=== PATIENT | male | born 1990 | race Caucasian/White ===

== ENCOUNTER 2017-09-07 13:43 | Emergency (ER) | payer SELFPAY ==
[2017-09-07 13:47] VITALS: BP 121/52
--- NOTE | 2017-09-07 15:43 | ED Physician Documentation ---
PD HPI HEENT - Stated complaint Stated Complaint: LEFT EAR PRESSURE - Chief complaint Chief Complaint: Heent - History obtained from History obtained from: Patient - History of Present Illness Timing - onset: Today (Diminished hearing/blockage R ear x 1 day. Had once prior d/t cerumen.) Review of Systems Constitutional: reports: Reviewed and negative Cardiac: reports: Reviewed and negative Respiratory: reports: Reviewed and negative PD PAST MEDICAL HISTORY - Present Medications Home Medications: Ambulatory Orders Medication Instructions Recorded Confirmed No Known Home Medications [No 09/07/17 09/07/17 Known Home Medications] - Allergies Allergies/Adverse Reactions: Allergies Allergy/AdvReac Type Severity Reaction Status Date / Time No Known Drug Allergies Allergy Verified 09/07/17 13:47 PD ED PE NORMAL - Vitals Vital signs reviewed: Yes - General General: Alert and oriented X 3, No acute distress - HEENT HEENT: Other (R cerumen impaction. Lot's of cerumen on left but not impacted.) Results - Vitals Vitals: Vital Signs - 24 hr 09/07/17 13:45 Temperature 36.5 C Heart Rate 55 L Respiratory 18 Rate Blood Pressure 121/52 L O2 Saturation 99 Oxygen O2 Source Room air Procedures - General procedure General procedure: Using syringe irrigation both ears were irrigated and cleared of cerumen with resolution of his symptoms. PD MEDICAL DECISION MAKING - Sepsis Event Vital Signs: Vital Signs - 24 hr 09/07/17 13:45 Temperature 36.5 C Heart Rate 55 L Respiratory 18 Rate Blood Pressure 121/52 L O2 Saturation 99 Oxygen O2 Source Room air Departure - Departure Disposition: 01 Home, Self Care Clinical Impression: Impacted cerumen of both ears Condition: Good Record reviewed to determine appropriate education?: Yes Instructions: Earwax Impacted
== END 2017-09-07 15:57 | disposition home or self-care (01) ==
LOC: ED 13:43
DX: H61.23 Impacted cerumen, bilateral (principal)
CPT/HCPCS: 69209; 99282

== ENCOUNTER 2019-02-13 12:43 | Emergency (ER) | payer MEDICAID ==
[2019-02-13 13:08] LABS: BASOPHILS # (AUTO) 0.1 10^3/uL (0.0-0.1); BASOPHILS % (AUTO) 0.7 %; EOSINOPHILS # (AUTO) 0.6 10^3/uL (0.0-0.7); EOSINOPHILS % (AUTO) 8.9 %; HGB - HEMOGLOBIN 15.2 g/dL (14.0-18.0); LYMPHOCYTES # (AUTO) 1.5 10^3/uL (1.5-3.5); LYMPHOCYTES % (AUTO) 20.9 %; MEAN CORPUSCULAR HEMOGLOBIN 29.7 pg (27.0-31.0); MEAN CORPUSCULAR HGB CONC 33.1 g/dL (32.0-36.0); MEAN CORPUSCULAR VOLUME 89.6 fL (80.0-94.0); MEAN PLATELET VOLUME 9.2 fL (7.4-11.4); MONOCYTES # (AUTO) 0.4 10^3/uL (0.0-1.0); MONOCYTES % (AUTO) 5.3 %; NEUTROPHILS # (AUTO) 4.4 10^3/uL (1.5-6.6); NEUTROPHILS % (AUTO) 64.1 %; PLT - PLATELET COUNT 256 10^3/uL (130-450); RED BLOOD COUNT 5.12 10^6/uL (4.70-6.10); RED CELL DISTRIBUTION WIDTH 12.5 % (12.0-15.0); WHITE BLOOD COUNT 6.9 x10^3/uL (4.8-10.8)
[2019-02-13 13:25] LABS: ALBUMIN 4.5 g/dL (3.2-5.5); ALBUMIN/GLOBULIN RATIO 1.6 (1.0-2.2); BILIRUBIN,TOTAL 1.1 mg/dL (0.2-1.0); CALCIUM 9.1 mg/dL (8.5-10.3); CREATININE 1.1 mg/dL (0.6-1.2); TOTAL PROTEIN 7.4 g/dL (6.7-8.2)
[2019-02-13] MEDS ORDERED: ALBUTEROL NEB 2.5 MG/3 ML INH STA (13:59)
[2019-02-13] MEDS ORDERED: DICYCLOMINE 10 MG CAPSULE PO STA (13:59)
--- NOTE | 2019-02-13 14:03 | ED Physician Documentation ---
PD HPI ABD PAIN - Stated complaint Stated Complaint: ABD PX - Chief complaint Chief Complaint: Abd Pain - History obtained from History obtained from: Patient (28-year-old gentleman who has multiple complaints. First off he has a history of asthma and feels like for the last few months it has been worse than it had been in the past. Is worse at night and feels like it is worse with stress. He has a nonproductive cough and shortness of breath. There is no chest pain. He also notes that he has kind of longstanding abdominal issues. States he was admitted to the hospital for 7 days for gallbladder issues but never had a cholecystectomy. He can voice has loose stools but over last 3 days it has been worse with more profuse diarrhea, already 4 episodes of unformed stool today. There is some right-sided abdominal pain associated with it but no fevers or chills. There is no nausea. No fevers. No recent antibiotics or travel.) Review of Systems Constitutional: denies: Fever, Chills Cardiac: reports: Reviewed and negative Respiratory: reports: Reviewed and negative GI: reports: Abdominal Pain, Diarrhea. denies: Nausea, Vomiting, Constipation : denies: Dysuria, Frequency PD PAST MEDICAL HISTORY - Past Surgical History Past Surgical History: No - Present Medications Home Medications: Ambulatory Orders Medication Instructions Recorded Confirmed Albuterol Sulf [Ventolin Hfa 1 - 2 puffs INH Q4HR PRN #1 inhaler 02/13/19 Inhaler] Beclomethasone 40 Mcg [Qvar 40] 1 puffs INH BID #2 inhaler 02/13/19 Dicyclomine [Bentyl] 20 mg PO QID PRN #20 capsule 02/13/19 Sertraline [Zoloft] 50 mg PO DAILY #60 tablet 02/13/19 - Allergies Allergies/Adverse Reactions: Allergies Allergy/AdvReac Type Severity Reaction Status Date / Time No Known Drug Allergies Allergy Verified 09/07/17 13:47 - Social History Does the pt smoke?: No Smoking Status: Never smoker Does the pt drink ETOH?: No Does the pt have substance abuse?: No - Immunizations Immunizations are current?: Yes - POLST Patient has POLST: No PD ED PE NORMAL - Vitals Vital signs reviewed: Yes - General General: Alert and oriented X 3, No acute distress - HEENT HEENT: PERRL, EOMI - Neck Neck: Supple, no meningeal sign, No bony TTP - Cardiac Cardiac: RRR, No murmur - Respiratory Respiratory: No respiratory distress, Other (Moderate expiratory wheezes, nonlabored, nonfocal.) - Abdomen Abdomen: Other (Mild right mid and upper abdominal tenderness without significant right lower quadrant tenderness. No left-sided abdominal tenderness. No surgical signs.) - Back Back: No CVA TTP, No spinal TTP - Derm Derm: Normal color, Warm and dry - Extremities Extremities: No edema, No calf tenderness / cord - Neuro Neuro: Alert and oriented X 3, Normal speech Results - Vitals Vitals: Vital Signs - 24 hr 02/13/19 02/13/19 12:50 14:15 Temperature 37.3 C Heart Rate 65 68 Respiratory 17 16 Rate Blood Pressure 154/70 H O2 Saturation 97 Oxygen O2 Source Room air - Labs Labs: Laboratory Tests 02/13/19 02/13/19 13:03 13:03 WBC 6.9 RBC 5.12 Hgb 15.2 Hct 45.9 MCV 89.6 MCH 29.7 MCHC 33.1 RDW 12.5 Plt Count 256 MPV 9.2 Neut # (Auto) 4.4 Lymph # (Auto) 1.5 [place] # (Auto) 0.4 Eos # (Auto) 0.6 Baso # (Auto) 0.1 Absolute Nucleated RBC 0.00 Nucleated RBC % 0.0 Sodium 139 Potassium 4.3 Chloride 106 Carbon Dioxide 26 Anion Gap 7.0 BUN 18 Creatinine 1.1 Estimated GFR (MDRD) 79 L Glucose 108 H Calcium 9.1 Total Bilirubin 1.1 H AST 21 ALT 21 Alkaline Phosphatase 47 Total Protein 7.4 Albumin 4.5 Globulin 2.9 Albumin/Globulin Ratio 1.6 Lipase 35 - Rads (name of study) Abd sono Radiology: EMP read contemporaneously (5mm polyp vs stone, small renal cyst) PD MEDICAL DECISION MAKING - ED course ED course: 28-year-old gentleman with multiple complaints including uncontrolled asthma without PCP follow-up, subacute but worsening right-sided abdominal pain associated with diarrhea. Also later admitted to severe anxiety which he thinks may be causing his abdominal symptoms and his is agreeing. [place] better from a respiratory standpoint after nebulizer here. Was unable to produce a stool sample here and given outpatient lab requisition for a culture, ova and parasite, and C. difficile test. He wanted to start an antidepressant and after discussion this is not unreasonable. Departure - Departure Disposition: 01 Home, Self Care Clinical Impression: Anxiety Diarrhea Qualifiers: Diarrhea type: presumed infectious Qualified Code(s): R19.7 - Diarrhea, unspecified Abdominal pain Qualifiers: Abdominal location: right upper quadrant Qualified Code(s): R10.11 - Right upper quadrant pain Condition: Good Record reviewed to determine appropriate education?: Yes Instructions: ED Abdominal Pain Unkn Cause Follow-Up: Amador Gonzales MD [Provider Admit Priv/Credential] - Within 1 week [facility] [Provider Group] [facility] [Provider Group] Prescriptions: Albuterol Sulf [Ventolin Hfa Inhaler] 1 - 2 puffs INH Q4HR PRN #1 inhaler PRN Reason: Shortness Of Air/Wheezing Beclomethasone 40 Mcg [Qvar 40] 1 puffs INH BID #2 inhaler Dicyclomine [Bentyl] 20 mg PO QID PRN #20 capsule PRN Reason: Abdominal Pain Sertraline [Zoloft] 50 mg PO DAILY #60 tablet Comments: As discussed, if symptoms are persistent I think a follow-up colonoscopy in his is in order, in addition to irritable bowel syndrome things like Crohn's or ulcerative colitis are possibility. Return anytime if worse. Important to follow-up with your primary care physician for management of your asthma and anxiety.
--- NOTE | 2019-02-13 14:48 | Ultrasound Report ---
Reason: RUQ pain Procedure Date: 02/13/2019 Accession Number: [id number] / [id number] Procedure: US - Abdomen Limited CPT Code: Final Report FULL RESULT: EXAM: ABDOMEN ULTRASOUND LIMITED, RUQ EXAM DATE: 02/13/2019 02:05 PM. CLINICAL HISTORY: RUQ pain. COMPARISON: None. TECHNIQUE: Real-time scanning was performed with static images obtained. FINDINGS: Liver: Normal in size and echotexture. 16.3 cm. Main portal vein flow: Hepatopetal. Gallbladder: 0.5 cm non-mobile gallstone versus polyp and avascular. No gallbladder wall thickening. No sonographic Veloz's sign. Biliary System: CBD measures 3-4 mm. No intrahepatic or extrahepatic ductal dilatation. Other: Right kidney measures 10 cm. Normal echotexture. No hydronephrosis. Mid 1.3 x 1.3 x 1.3 cm cyst is present. No solid renal masses. No renal calculi. IMPRESSION: 1. 0.5 cm polyp versus non-mobile gallstone. No sonographic evidence of cholecystitis. 2. No biliary ductal dilatation. 3. Simple right renal 1.3 cm cyst. RADIA
[2019-02-13 15:14] VITALS: BP 115/74
[2019-02-13 15:14] LABS: BILIRUBIN,URINE NEGATIVE (NEGATIVE); GLUCOSE, URINE (UA) NEGATIVE (NEGATIVE); KETONES,URINE (UA) NEGATIVE (NEGATIVE); LEUKOCYTE ESTERASE, URINE NEGATIVE (NEGATIVE); NITRITE,URINE NEGATIVE (NEGATIVE); OCCULT BLOOD,URINE NEGATIVE (NEGATIVE); PROTEIN,URINE NEGATIVE (NEGATIVE); UROBILINOGEN,URINE 0.2 (NORMAL) E.U./dL (NORMAL)
[2019-02-13 15:21] LABS: CLARITY,URINE CLEAR (CLEAR)
== END 2019-02-13 15:15 | disposition home or self-care (01) ==
LOC: ED 12:43
DX: F41.9 Anxiety disorder, unspecified (principal); R19.7 Diarrhea, unspecified; R10.11 Right upper quadrant pain; R06.2 Wheezing
CPT/HCPCS: 36415; 76705; 80053; 81003; 83690; 85025; 94640; 99284; A9270; 81001; 87086

== ENCOUNTER 2019-03-12 17:40 | Emergency (ER) | payer MEDICAID ==
--- NOTE | 2019-03-12 19:09 | ED Physician Documentation ---
PD HPI URI - Stated complaint Stated Complaint: RT EAR PX/TRAN/HEADACHE - Chief complaint Chief Complaint: Heent - History obtained from History obtained from: Patient - History of Present Illness Timing - onset: How many days ago (2-3) Timing duration: Days Timing details: Gradual onset Associated symptoms: Ear pain (right ear today), Nasal congestion, Sinus pain. No: Sore throat Contributing factors: No: Sick contact Similar symptoms before: Has not had sx before Recently seen: Not recently seen Review of Systems Constitutional: denies: Fever, Chills, Myalgias Ears: reports: Loss of hearing (right ear today), Ear pain Nose: reports: Rhinorrhea / runny nose, Congestion, Sinus pressure / pain Throat: reports: Sore throat Respiratory: denies: Cough GI: denies: Nausea, Vomiting, Diarrhea Skin: denies: Rash, Lesions PD PAST MEDICAL HISTORY - Past Medical History Past Medical History: No - Past Surgical History Past Surgical History: No - Present Medications Home Medications: Ambulatory Orders Medication Instructions Recorded Confirmed Albuterol Sulf [Ventolin Hfa 1 - 2 puffs INH Q4HR PRN #1 inhaler 02/13/19 Inhaler] Beclomethasone 40 Mcg [Qvar 40] 1 puffs INH BID #2 inhaler 02/13/19 Dicyclomine [Bentyl] 20 mg PO QID PRN #20 capsule 02/13/19 Sertraline [Zoloft] 50 mg PO DAILY #60 tablet 02/13/19 Cephalexin [Keflex] 500 mg PO Q6H #28 capsule 03/12/19 Cetirizine [ZyrTEC] 10 mg PO DAILY #15 tablet 03/12/19 Naproxen 375 mg PO BID #20 tablet 03/12/19 - Allergies Allergies/Adverse Reactions: Allergies Allergy/AdvReac Type Severity Reaction Status Date / Time No Known Drug Allergies Allergy Verified 03/12/19 17:50 - Social History Does the pt smoke?: No Smoking Status: Never smoker Does the pt drink ETOH?: No Does the pt have substance abuse?: No - Immunizations Immunizations are current?: Yes - POLST Patient has POLST: No PD ED PE NORMAL - Vitals Vital signs reviewed: Yes - General General: Alert and oriented X 3, No acute distress, Well developed/nourished - HEENT HEENT: Pharynx benign. No: Ears normal (Left ear is normal. Right ear shows redness and bulging around the eardrum. There is minimal to no wax in the ear canal.) - Neck Neck: Supple, no meningeal sign, Other (Anterior adenopathy particularly on the right.) - Cardiac Cardiac: RRR, No murmur - Respiratory Respiratory: Clear bilaterally - Derm Derm: Normal color, Warm and dry - Neuro Neuro: Alert and oriented X 3, No motor deficit, Normal speech Results - Vitals Vitals: Vital Signs - 24 hr 03/12/19 19:31 Heart Rate 68 Respiratory 14 Rate Blood Pressure 114/60 O2 Saturation 98 Oxygen O2 Source Room air PD MEDICAL DECISION MAKING - ED course Complexity details: considered differential, d/w patient Departure - Departure Disposition: 01 Home, Self Care Clinical Impression: Otitis media Qualifiers: Otitis media type: suppurative Chronicity: acute Laterality: right Recurrence: non-recurrent Spontaneous tympanic membrane rupture: without spontaneous rupture Qualified Code(s): H66.001 - Acute suppurative otitis media without spontaneous rupture of ear drum, right ear Upper respiratory infection Qualifiers: URI type: unspecified URI Qualified Code(s): J06.9 - Acute upper respiratory infection, unspecified Condition: Stable Record reviewed to determine appropriate education?: Yes Instructions: ED Otitis Media Acute Adult Prescriptions: Cephalexin [Keflex] 500 mg PO Q6H #28 capsule Cetirizine [ZyrTEC] 10 mg PO DAILY #15 tablet Naproxen 375 mg PO BID #20 tablet Comments: Stay well-hydrated. Use cephalexin antibiotic as directed for a week for the ear infection. Naproxen anti-inflammatory twice daily for 7 to 10 days. Cetirizine antihistamine daily for 7 to 10 days as well. This combination is to help treat infection inflammation and congestion causing your symptoms. Add Tylenol 4 times a day if needed for pain. Recheck if not improving well over the next few days. Discharge Date/Time: 03/12/19 19:31
[2019-03-12] MEDS ORDERED: cephALEXin 250 MG CAPSULE PO STA (19:20)
[2019-03-12] MEDS ORDERED: CHERRY SYRUP 10 ML UDC PO ONE (19:20)
[2019-03-12] MEDS ORDERED: diphenhydrAMINE 25 MG CAPSULE PO STA (19:20)
[2019-03-12] MEDS ORDERED: NAPROXEN 250 MG TABLET PO STA (19:20)
[2019-03-12] MEDS ORDERED: ACETAMINOPHEN 325 MG TABLET PO STA (19:20)
[2019-03-12] MEDS ORDERED: DEXAMETHASONE 10 MG/ML VIAL PO STA (19:20)
[2019-03-12 19:32] VITALS: BP 114/60
== END 2019-03-12 19:31 | disposition home or self-care (01) ==
LOC: ED 17:40
DX: H66.001 Acute suppurative otitis media without spontaneous rupture of ear drum, right ear (principal); J06.9 Acute upper respiratory infection, unspecified
CPT/HCPCS: 99283; A9270

== ENCOUNTER 2020-04-09 16:20 | Outpatient (CLI) | payer MEDICAID | END 2020-04-09 16:21 | disposition home or self-care (01) | LOC: COV 16:20 | PROVIDERS: ATTEND Family Medicine | DX: R05 Cough (principal); R06.02 Shortness of breath; M79.10 Myalgia, unspecified site; R09.81 Nasal congestion; J34.89 Other specified disorders of nose and nasal sinuses; Z20.822 Contact with and (suspected) exposure to COVID-19 ==

== ENCOUNTER 2022-04-30 14:25 | Emergency (ER) | payer MEDICAID ==
[2022-04-30 15:20] LABS: BASOPHILS # (AUTO) 0.1 10^3/uL (0.0-0.1); BASOPHILS % (AUTO) 0.7 %; EOSINOPHILS # (AUTO) 0.2 10^3/uL (0.0-0.7); EOSINOPHILS % (AUTO) 2.1 %; HCT - HEMATOCRIT 46.1 % (42.0-52.0); HGB - HEMOGLOBIN 14.6 g/dL (14.0-18.0); LYMPHOCYTES # (AUTO) 2.3 10^3/uL (1.5-3.5); MEAN CORPUSCULAR HEMOGLOBIN 28.3 pg (27.0-31.0); MEAN CORPUSCULAR HGB CONC 31.7 g/dL (32.0-36.0); MEAN CORPUSCULAR VOLUME 89.5 fL (80.0-94.0); MEAN PLATELET VOLUME 9.3 fL (7.4-11.4); MONOCYTES # (AUTO) 0.5 10^3/uL (0.0-1.0); NEUTROPHILS # (AUTO) 5.5 10^3/uL (1.5-6.6); PLT - PLATELET COUNT 252 10^3/uL (130-450); RED BLOOD COUNT 5.15 10^6/uL (4.70-6.10); RED CELL DISTRIBUTION WIDTH 12.3 % (12.0-15.0); WHITE BLOOD COUNT 8.6 x10^3/uL (4.8-10.8)
[2022-04-30 15:24] LABS: ALBUMIN 4.2 g/dL (3.2-5.5); ALBUMIN/GLOBULIN RATIO 1.4 (1.0-2.2); BILIRUBIN,TOTAL 1.2 mg/dL (0.2-1.0); CALCIUM 9.2 mg/dL (8.5-10.3); CREATININE 1.2 mg/dL (0.6-1.2); POTASSIUM 4.5 mmol/L (3.5-5.0); TOTAL PROTEIN 7.3 g/dL (6.7-8.2)
--- NOTE | 2022-04-30 16:24 | ED Physician Documentation ---
PD HPI ABD PAIN - Stated complaint Stated Complaint: ABD PX - Chief complaint Chief Complaint: Abd Pain - History obtained from History obtained from: Patient - Additional information Additional information: 31-year-old gentleman has a history of potential gallstones. 7 years ago he had an episode of right upper quadrant pain, and at that time was told he had small gallstones. This was on ultrasound. 3 years ago the pain recurred. He did not have imaging at that time. He states that he was told it was not gallstones. For the last 5 days he had fairly constant right upper quadrant pain that is worse when he eats. It is worse immediately after he eats. It does not matter what he eats. There is no current nausea but he has had at times mild nausea. No fevers. No radiation of the pain. PD PAST MEDICAL HISTORY - Past Surgical History Past Surgical History: No - Present Medications Home Medications: Ambulatory Orders Medication Instructions Recorded Confirmed Albuterol Sulf [Ventolin Hfa 1 - 2 puffs INH Q4HR PRN #1 inhaler 02/13/19 Inhaler] Beclomethasone 40 Mcg [Qvar 40] 1 puffs INH BID #2 inhaler 02/13/19 Dicyclomine [Bentyl] 20 mg PO QID PRN #20 capsule 02/13/19 Sertraline [Zoloft] 50 mg PO DAILY #60 tablet 02/13/19 Cetirizine [ZyrTEC] 10 mg PO DAILY #15 tablet 03/12/19 Naproxen 375 mg PO BID #20 tablet 03/12/19 cephALEXin [Keflex] 500 mg PO Q6H #28 capsule 03/12/19 HYDROcod/ACETAM 5/325 [[place] 5/325] 1 - 2 tab PO Q6H PRN #15 tablet 04/30/22 - Allergies Allergies/Adverse Reactions: Allergies Allergy/AdvReac Type Severity Reaction Status Date / Time No Known Drug Allergies Allergy Verified 04/30/22 14:54 - Social History Does the pt smoke?: No Smoking Status: Never smoker Does the pt drink ETOH?: No Does the pt have substance abuse?: No - Immunizations Immunizations are current?: Yes - POLST Patient has POLST: No PD ED PE NORMAL - Vitals Vital signs reviewed: Yes - General General: Alert and oriented X 3, No acute distress - Cardiac Cardiac: RRR, No murmur - Respiratory Respiratory: No respiratory distress, Clear bilaterally - Abdomen Abdomen: Normal bowel sounds, Soft, Other (Very mild right upper quadrant tenderness with negative Veloz sign) - Neuro Neuro: Alert and oriented X 3, Normal speech Results - Vitals Vitals: Vital Signs - 24 hr 04/30/22 04/30/22 14:51 18:08 Temperature 36.8 C 36.6 C Heart Rate 58 L 58 L Respiratory 16 17 Rate Blood Pressure 111/61 142/117 H O2 Saturation 98 100 Oxygen O2 Source Room air - Labs Labs: Laboratory Tests 04/30/22 04/30/22 04/30/22 15:06 15:06 16:23 WBC 8.6 RBC 5.15 Hgb 14.6 Hct 46.1 MCV 89.5 MCH 28.3 MCHC 31.7 L RDW 12.3 Plt Count 252 MPV 9.3 Neut # (Auto) 5.5 Lymph # (Auto) 2.3 [place] # (Auto) 0.5 Eos # (Auto) 0.2 Baso # (Auto) 0.1 Absolute Nucleated RBC 0.00 Nucleated RBC % 0.0 Sodium 138 Potassium 4.5 Chloride 105 Carbon Dioxide 26 Anion Gap 7.0 BUN 21 H Creatinine 1.2 Estimated GFR (MDRD) 70 L Glucose 100 Calcium 9.2 Total Bilirubin 1.2 H AST 18 ALT 19 Alkaline Phosphatase 45 Total Protein 7.3 Albumin 4.2 Globulin 3.1 Albumin/Globulin Ratio 1.4 Lipase 30 Urine Color YELLOW Urine Clarity CLEAR Urine pH 6.0 Ur Specific [place] >=1.030 H Urine Protein NEGATIVE Urine Glucose (UA) NEGATIVE Urine Ketones NEGATIVE Urine Occult Blood NEGATIVE Urine Nitrite NEGATIVE Urine Bilirubin NEGATIVE Urine Urobilinogen 0.2 (NORMAL) Ur Leukocyte Esterase NEGATIVE Ur Microscopic Review NOT INDICATED Urine Culture Comments NOT INDICATED PD Medical Decision Making - ED course ED course: 31-year-old gentleman with episodic right upper quadrant pain. He has a gallstone. Benign exam. Labs show mild elevation in bilirubin on CMP. CBC normal. Urinalysis normal save high gravity. Declined pain medications here. He will be following up with a surgeon. Departure - Departure Disposition: 01 Home, Self Care Clinical Impression: Abdominal pain Condition: Good Record reviewed to determine appropriate education?: Yes Instructions: ED Abdominal Pain Unkn Cause Male Follow-Up: [facility] [Provider Group] [facility] [Provider Group] Prescriptions: HYDROcod/ACETAM 5/325 [Tellur[place] 5/325] 1 - 2 tab PO Q6H PRN #15 tablet PRN Reason: Pain Comments: As discussed, the preliminary report from the hot dip tinning supervisor is that you have a gallbladder polyp. This could be causing her symptoms. Your labs are normal. Reasonable to follow-up with the surgeon. I will call you later if the radiologist sees something important on the ultrasound that the compliance testing analyst did not mention. Return for new or worsening symptoms. I sent your prescriptions electronically to [facility] in [place]. I am prescribing a short course of narcotic pain medication for you. These are potentially dangerous and addictive medications that should be used carefully. These medications may constipate you. Take an snkz-[id number] stool softener (docusate) twice daily with plenty of water while taking these medications. If you go 24 hours without a bowel movement, take [id number] miralax, per package instructions. Do not drink or drive while taking these medications. If you received narcotic or sedating medications while in the emergency department, do not drive for 24 hours. Store this medication in a safe, secure place and out of reach of children. It is a violation of federal law to give or sell this medication to another person or to use in a manner other than prescribed. The ED will not refill narcotic prescriptions, including prescriptions lost or stolen. To dispose of unwanted medications: 1. [facility] at [address] in [place] has a medication drop box. They accept prescription medications (in pill form) Sunday through Sunday 9:00 a.m. to 5:00 p.m. 2. The [facility] [place] [employer] accepts prescription medications (in pill form only) for disposal year round. Call for more information. 3. Contact the [facility] for the next [facility] sponsored prescription drug collection event. , [phone], or [phone]; Note that many narcotic pain relievers also contain Tylenol/acetaminophen. Please ensure that your total dose of acetaminophen from all sources does not exceed 3 g (3000 mg) per day. Discharge Date/Time: 04/30/22 18:09
[2022-04-30 16:38] LABS: BILIRUBIN,URINE NEGATIVE (NEGATIVE); GLUCOSE, URINE (UA) NEGATIVE (NEGATIVE); KETONES,URINE (UA) NEGATIVE (NEGATIVE); LEUKOCYTE ESTERASE, URINE NEGATIVE (NEGATIVE); NITRITE,URINE NEGATIVE (NEGATIVE); OCCULT BLOOD,URINE NEGATIVE (NEGATIVE); PROTEIN,URINE NEGATIVE (NEGATIVE); UROBILINOGEN,URINE 0.2 (NORMAL) E.U./dL (NORMAL)
[2022-04-30 16:39] LABS: CLARITY,URINE CLEAR (CLEAR)
[2022-04-30 18:09] VITALS: BP 142/117
--- NOTE | 2022-04-30 18:23 | Ultrasound Report ---
PROCEDURE: Abdomen Limited INDICATIONS: ruq pain TECHNIQUE: Real-time focused scanning was performed of the abdomen, with image documentation. COMPARISON: FINDINGS: Liver: Liver is normal in size and demonstrates mildly increased echotexture consistent with mild fa tty infiltration. There is a 1.1 x 0.7 x 1 point centimeter subtle hypoechoic focus in the left hepa tic lobe. Portal vein is patent and demonstrates hepatopedal flow. Gallbladder: There is a 1 cm mobile gallstone. Previously seen gallbladder polyp is not visualized. N o gallbladder wall thickening, pericholecystic fluid collection or no sonographic Veloz sign. Biliary ducts: Intrahepatic bile ducts are non-dilated. Extrahepatic bile duct caliber measures 2.9 mm. Normal is 6-7 mm or less in diameter, or 10 mm or less post-cholecystectomy. Pancreas: Visualized portions of the pancreas are sonographically normal. Right kidney: Right kidney measures 10.1 cm long. No hydronephrosis or nephrolithiasis. No solid m asses. As a 1.4 x 1.7 x 1.7 cm simple cyst in right kidney. IVC: Intrahepatic inferior vena cava is patent. Miscellaneous: No free abdominal fluid. IMPRESSION: 1. Diffusely increased hepatic echotexture compatible with hepatic fatty infiltration. Other hepatoce llular disease could have a similar appearance. 2. A mobile gallstone is present. No ultrasound findings to suggest acute cholecystitis. Reviewed by: Eamon Wilder MD on 04/30/2022 6:22 PM PST Approved by: Eamon Wilder MD on 04/30/2022 6:22 PM PST Station ID: [id number]
== END 2022-04-30 18:09 | disposition home or self-care (01) ==
LOC: ED 14:25
DX: R10.11 Right upper quadrant pain (principal)
CPT/HCPCS: 36415; 80053; 81001; 81003; 83690; 85025; 87086; 99283; 99284

== ENCOUNTER 2022-08-28 08:41 | Day surgery (SDC) | payer MEDICAID ==
[~2022-08-28 08:41] MED LIST: BUPIVACAINE 0.25% PF 30 ML VIAL ONE; LIDOCAINE 1%-EPI 1:100000 20 ML MDV ONE; iohexoL-240 10 ML VIAL IVP ONE
[2022-08-28] MEDS ORDERED: ACETAMINOPHEN 500 MG TABLET PO ONE (08:57)
[2022-08-28] MEDS ORDERED: metroNIDAZOLE 500 MG/100 ML 500 MG/100 ML BAG ONE (08:58)
[2022-08-28] MEDS ORDERED: ceFAZolin 2 GM VIAL ONE (08:58)
[2022-08-28] MEDS ORDERED: CELECOXIB 100 MG CAPSULE PO ONE (08:58)
[2022-08-28] MEDS ORDERED: LACTATED RINGERS 1,000 ML IV ONE ×2 (09:02→12:25)
[2022-08-28] MEDS ORDERED: PROPOFOL 200 MG/20 ML VIAL IVP ONE (09:51)
[2022-08-28] MEDS ORDERED: ROCURONIUM 50 MG/5 ML VIAL ONE (09:52)
--- NOTE | 2022-08-28 09:53 | ANESTHESIA ---
Pre-Anesthesia VS, & Labs - Diagnosis cholecystitis - Procedure laparoscopic cholecystectomy with IOC Vital Signs: Temp Pulse Resp BP Pulse Ox O2 Flow Rate 36.7 C 56 L 12 126/72 95 0 08/28/22 09:04 08/28/22 09:04 08/28/22 09:04 08/28/22 09:04 08/28/22 09:04 08/28/22 09:04 Height: 6 ft Weight (kg): 99 kg Body Mass Index: 29.6 BMI Classification: Overweight - NPO >8 hours Home Medications and Allergies Home Medications: Ambulatory Orders Albuterol Sulf [Ventolin Hfa Inhaler] 1 - 2 puffs INH Q4HR PRN 08/18/22 Active Medications Acetazolamide (Acetazolamide 250 Mg Tablet) 250 mg PO ONCE ONE Stop: 08/28/22 10:01 Albuterol Sulf [Ventolin Hfa Inhaler] 1 - 2 puffs INH Q4HR PRN 08/18/22 Allergies/Adverse Reactions: Allergies Allergy/AdvReac Type Severity Reaction Status Date / Time latex Allergy Rash Verified 08/28/22 09:07 Anes History & Medical History - Anesthetic History Anesthesia Complications: reports: No previous complications - Medical History Cardiovascular: reports: None Pulmonary: reports: Asthma Gastrointestinal: reports: None Urinary: reports: None Musculoskeletal: reports: Chronic back pain Endocrine/Autoimmune: reports: None Skin: reports: None Smoking Status: Never smoker History of Cancer?: No - Surgical History Eyes Ears Nose Throat (EENT): reports: Myringotomy (tubes), Tonsil/Adenoidectomy, Other Exam General: Alert, Oriented x3 Dental: WNL Mouth Opening: Greater than 4 Fingerbreadths Neck Mobility: Normal Mallampati classification: II Thyromental Distance: greater than 6 cm Respiratory: Lungs clear Cardiovascular: Regular rate Plan Anesthesia Type: General Consent for Procedure(s) Verified and Reviewed: Yes Code Status: Attempt Resuscitation ASA classification: 2-Mild systemic disease Is this case an emergency?: No
[2022-08-28] MEDS ORDERED: fentaNYL 100 MCG/2 ML VIAL ONE ×3 (09:56→12:40)
[2022-08-28] MEDS ORDERED: MIDAZOLAM 2 MG/2 ML VIAL ONE (09:56)
[2022-08-28] MEDS: acetaZOLAMIDE 250 MG TABLET PO ONE ×2 (10:01→19:49)
[2022-08-28] MEDS ORDERED: METOCLOPRAMIDE 10 MG/2 ML VIAL IVP PRN ×2 (10:11→15:05)
[2022-08-28] MEDS ORDERED: MORPHINE 2 MG/ML CARPUJECT IVP PRN (10:11)
[2022-08-28] MEDS ORDERED: ePHEDrine 50 MG/ML VIAL IVP PRN (10:11)
[2022-08-28] MEDS ORDERED: NALOXONE 0.4 MG/ML VIAL IVP PRN (10:11)
[2022-08-28] MEDS ORDERED: ATROPINE ABBOJECT 1 MG/10 ML SYRINGE IVP PRN (10:11)
[2022-08-28] MEDS ORDERED: ONDANSETRON 4 MG/2 ML VIAL IVP PRN (10:11)
[2022-08-28] MEDS ORDERED: fentaNYL 100 MCG/2 ML VIAL IVP PRN (10:11)
[2022-08-28] MEDS ORDERED: GLYCOPYRROLATE 1 MG/5 ML VIAL ONE (10:44)
[2022-08-28] MEDS ORDERED: ONDANSETRON 4 MG/2 ML VIAL ONE ×2 (10:58→13:59)
[2022-08-28] MEDS ORDERED: DEXAMETHASONE 4 MG/ML VIAL ONE (10:58)
[2022-08-28] MEDS ORDERED: IOTHALAMATE MEGLUMINE 50 ML VIAL IVP ONE (11:00)
[2022-08-28] MEDS ORDERED: LIDOCAINE 1%-EPI 1:100000 20 ML MDV SUBQ ONE (11:00)
[2022-08-28] MEDS ORDERED: BUPIVACAINE 0.5% PF 30 ML VIAL SUBQ ONE (11:00)
[2022-08-28] MEDS ORDERED: LACTATED RINGERS 1,000 ML IV SCH ×2 (11:00→17:00)
[2022-08-28] MEDS ORDERED: SUGAMMADEX 200 MG/2 ML VIAL IVP ONE (11:55)
[2022-08-28] MEDS ORDERED: LACTATED RINGERS 150 ML IV ONE (12:07)
[2022-08-28] MEDS ORDERED: oxyCODONE 5 MG TABLET PO PRN (12:11)
--- NOTE | 2022-08-28 12:14 | OPERATIVE REPORT ---
Operative Report - General Procedure Date: 08/28/22 Planned Procedure: Laparoscopic cholecystectomy with intraoperative cholangiogram Pre-Op Diagnosis: Chronic cholecystitis, symptomatic cholelithiasis Procedure Performed: Laparoscopic cholecystectomy with attempted intraoperative cholangiogram Post Op Diagnosis: Chronic cholecystitis, symptomatic cholelithiasis - Procedure Note Primary Surgeon: Dr. Patti White Anesthesia Provider: Marti Ribeiro CRNA Anesthesia Technique: General ET tube, Local Pathology: Gallbladder and contents Estimated Blood Loss (mL): 10 Indications: The patient has had episodic right upper quadrant pain for several years. On ultrasound, he does have at least one gallstone. He was seen and evaluated in the clinic where we discussed the risks, benefits, and alternatives of laparoscopic cholecystectomy with intraoperative cholangiogram and possible open procedure. Risks discussed include bleeding, infection, damage to surrounding structures including the common bile duct, and the need for further surgeries or procedures. The patient voiced understanding, his questions were answered, and he wished to proceed. Consent was signed by the patient in clinic. Findings: 1. Loose adhesions between the omentum and gallbladder 2. Cholelithiasis 3. Critical view of safety obtained from medial and lateral position 4. Very small cystic duct, unable to be cannulated with cholangiogram catheter Complications: None - Other Other Information/Narrative: The patient was brought to the operative suite and placed in the supine position. General endotracheal anesthesia was induced. Preoperative antibiotics were given. ERAS protocol was followed. A preop surgical timeout was performed. Local anesthetic was injected into the skin and subcutaneous tissues just inferior to the umbilicus. An 11 blade scalpel was used to make a 5 mm transverse skin incision in this location. Next, a hemostat was used to spread the tissues down to the level of the fascia and a Ravi clamp was used to grasp and elevate the umbilical stalk. A Varess needle was used to gain access to the peritoneal space. Low flow insufflation revealed low pressures and then high flow insufflation was undertaken to 15 mmHg. Next, the Varess needle was removed and a 5 mm laparoscopic port was inserted in this location. Through this port, a 5 mm 30 degree laparoscope was inserted. On inspection of the abdomen no injury was caused on entry. Next, the patient was placed in reverse Trendelenburg and rotated slightly to the left. Two 5 mm ports were inserted in the right upper quadrant, one in the anterior axillary line and the other in the midclavicular line. Also, a 12 mm port was inserted in the subxiphoid region. All ports were placed by first anesthetizing the skin and subcutaneous tissues with local anesthetic, then by making an appropriate length incision with an 11 blade scalpel, and finally by placing the port under direct laparoscopic vision. Once the ports were in place, a ratcheted, toothed grasper was used to elevate the fundus of the gallbladder toward the patient's right shoulder. There were loose adhesions in the right upper quadrant between the omentum and the gallbladder. These were taken down with blunt and sharp dissection with electrocautery. Next, the peritoneum was incised starting at the hilum of the gallbladder and working toward the fundus along the gallbladder liver interface on the medial and lateral aspects of the gallbladder. Next, attention was returned to the hilum of the gallbladder. The alveolar tissues in this region were taken down with blunt and sharp dissection with electrocautery taking great care not to cauterize though any tissue I could not easily see through. Two ductal structures were isolated and skeletonized such that each ductal structure could be visualized with liver present on either side. The cystic plate was also developed. At this time, it was felt that a critical view of safety had been obtained. Doublet photography of the critical view from the medial and lateral perspectives was performed. Next, a clip was placed distally, that is toward the gallbladder, on the cystic duct and just proximal to this a ductotomy was performed. Multiple attempts were made to place a cholangiogram catheter within the duct, but it was too small to cannulate. As the anatomy appeared normal, and the patient had no history of elevated liver enzymes, I elected to proceed with the case without a cholangiogram. Two clips were placed proximally on the cystic duct. The cystic duct and cystic artery were divided using laparoscopic scissors between the clips. Next the gallbladder was dissected off of the liver bed. Once it was completely freed, the gallbladder was placed in an Endo Catch bag and removed through the epigastric port. The epigastric port was replaced and suction and irrigation were used to remove any fluid from the right upper quadrant. This was done until the fluid returned was clear. Next, local anesthesia in the amount of 10 mL was infused into the right upper quadrant along the liver diaphragm interface to reduce to postoperative pain. Next, a laparoscopic fascial closure device was used to place a single interrupted 0 Vicryl suture at the epigastric port. This reapproximated the fascia well. The remaining ports were removed under direct laparoscopic vision and the abdomen was deflated. Next, the skin edges were reapproximated with 4-0 Monocryl in an interrupted subcuticular fashion. A sterile dressing of skin glue was placed. The patient tolerated the procedure well. The patient was extubated in the operating room and transferred to the recovery room in stable condition. There were no complications.
[2022-08-28] MEDS: fentaNYL 100 MCG/2 ML VIAL ONE ×2 (12:25→12:30)
[2022-08-28] MEDS: HYDROmorphone 0.5 MG/0.5 ML SYRINGE IVP PRN ×2 (12:35→12:40)
[2022-08-28] MEDS ORDERED: HYDROmorphone 1 MG/ML CARPUJECT ONE (12:39)
[2022-08-28] MEDS ORDERED: HYDROmorphone 0.5 MG/0.5 ML SYRINGE ONE (12:55)
--- NOTE | 2022-08-28 13:19 | ANESTHESIA POST OP EVALUATION ---
Anesthesia Post Eval - Post Anesthesia Eval Vitals: Last Vital Signs Temp 36.6 C 08/28/22 13:06 Pulse 63 08/28/22 13:12 Resp 14 08/28/22 13:12 BP 118/75 08/28/22 13:12 Pulse Ox 97 08/28/22 13:12 O2 Flow Rate 0 08/28/22 09:04 CV Function Including HR & BP: Stable Pain Control: Satisfactory Nausea & Vomiting: Negative Mental Status: Baseline Respiratory Status: Airway Patent Hydration Status: Satisfactory Anesthesia Complications: None
[2022-08-28] MEDS: ONDANSETRON 4 MG/2 ML VIAL IVP PRN ×2 (13:55→20:12)
[2022-08-28] MEDS ORDERED: oxyCODONE 5 MG TABLET ONE ×2 (14:13→15:13)
[2022-08-28] MEDS ORDERED: IBUPROFEN 600 MG TABLET PO PRN (15:00)
[2022-08-28] MEDS ORDERED: oxyCODONE 5 MG TABLET PO ONE (15:00)
[2022-08-28] MEDS ORDERED: ACETAMINOPHEN 325 MG TABLET PO PRN (15:00)
[2022-08-28] MEDS ORDERED: IBUPROFEN 600 MG TABLET PO ONE (15:13)
[2022-08-28] MEDS ORDERED: ACETAMINOPHEN 325 MG TABLET PO ONE (15:13)
[2022-08-28] MEDS ORDERED: METOCLOPRAMIDE 10 MG/2 ML VIAL ONE (15:13)
[2022-08-28] MEDS ORDERED: HYDROmorphone 0.5 MG/0.5 ML SYRINGE IVP PRN ×2 (16:10→16:15)
[2022-08-28] MEDS ORDERED: LORazepam 0.5 MG TABLET PO ONE (16:16)
[2022-08-28] MEDS: LORazepam 2 MG/ML VIAL IVP ONE ×2 (16:29→19:49)
[2022-08-28] MEDS ORDERED: LIDOCAINE 2% URO-JET 5 ML SYRINGE UR ONE (16:49)
[2022-08-28 20:05] VITALS: BP 130/90
== END 2022-08-28 21:30 | disposition home or self-care (01) ==
LOC: SDS 08:41 → MS2 16:13 → SDS 21:30
PROVIDERS: ATTEND Surgery
PROC: 0FT44ZZ Resection of Gallbladder, Percutaneous Endoscopic Approach (ICD-10-PCS; principal; 2022-08-28 10:15)
DX: K80.10 Calculus of gallbladder with chronic cholecystitis without obstruction (principal); F41.9 Anxiety disorder, unspecified; J45.909 Unspecified asthma, uncomplicated
CPT/HCPCS: 47562; A9270; C1758; J1170; J2060; J2765; J7120; Q9961; Q9966

== ENCOUNTER 2022-09-19 16:05 | Emergency (ER) | payer MEDICAID ==
[2022-09-19] MEDS ORDERED: PROPARACAINE 0.5% OPHTH DROPS 15 ML RIGHTEYE STA (17:29)
[2022-09-19] MEDS ORDERED: ERYTHROMYCIN OPHTH OINT 1 GM TUBE LEFTEYE STA (17:45)
--- NOTE | 2022-09-19 17:59 | ED Physician Documentation ---
History of Present Illness - Stated complaint Stated Complaint: LT EYE INJ. - Chief complaint Chief Complaint: Heent - Additonal information Additional information: 32-year-old male presents emergency department for evaluation of acute left eye pain. Reports that he was trying to grind a nail out of wood without wearing protective goggles and felt something fly into his eye. He is unsure if it was wood or metal. He had pain in the left upper part of his eye under the lid. He irrigated copiously with water at home and then presented to the ER. He does have blurry vision but no acute visual loss. He has general conjunctival injec tion and tearing. Review of Systems Eyes: reports: Decreased vision, Irritation. denies: Loss of vision, Discharge Ears: reports: Reviewed and negative Nose: reports: Reviewed and negative PD PAST MEDICAL HISTORY - Past Medical History Cardiovascular: None Respiratory: Asthma Endocrine/Autoimmune: None GI: None : None HEENT: Chronic hearing loss Psych: Anxiety Musculoskeletal: Chronic back pain Derm: None - Past Surgical History Past Surgical History: No HEENT: Myringotomy (tubes), Tonsil/Adenoidectomy, Other - Present Medications Home Medications: Ambulatory Orders Medication Instructions Recorded Confirmed Albuterol Sulf [Ventolin Hfa 1 - 2 puffs INH Q4HR PRN 08/18/22 09/19/22 Inhaler] - Allergies Allergies/Adverse Reactions: Allergies Allergy/AdvReac Type Severity Reaction Status Date / Time latex Allergy Rash Verified 09/19/22 16:13 - Social History Does the pt smoke?: No Smoking Status: Never smoker Does the pt drink ETOH?: No Does the pt have substance abuse?: No - Immunizations Immunizations are current?: Yes - POLST Patient has POLST: No PD ED PE EXPANDED - General General: Alert, No acute distress - Eyes Eyes: Left eye (Negative fluorescein stain. General conjunctival injection. Both eyelids fully everted without evidence of foreign body. Clear anterior chambers. Clear posterior chambers. No evidence of retinal hemorrhage. Extraocular movements are normal. Left eye ocular pressure was 17 and on repeat 20 mmhg), Anterior chambers clear. No: Conj/sclera FB, Subconj hemorrhage, Corneal abrasion, Corneal ulcer, Fluorescein uptake Results - Vitals Vitals: Vital Signs - 24 hr 09/19/22 16:14 Temperature 36.6 C Heart Rate 68 Respiratory 16 Rate Blood Pressure 121/65 O2 Saturation 98 Oxygen O2 Source Room air PD Medical Decision Making - ED course Complexity details: d/w patient ED course: 32-year-old male presents emergency department for evaluation of acute left eye pain after grinding some wood and a nail and felt an object fly into his eye. He did not have loss of vision but endorses blurry vision. I was able to give the patient proparacaine and do a very thorough eye evaluation. The lids were fully everted no evidence of foreign body was seen. His eyes were thoroughly irrigated with nearly a liter of saline. Following this fluorescein was applied to the eye and there was no evidence of corneal abrasion or ulceration. The left eye pressure was 17 on 1 test and 20 on repeat. Extraocular movements are normal. He has clear anterior and posterior chambers. No evidence of a hemorrhage within the retina. At this time I suspect the patient has some general conjunctival injection and irritation secondary to the irrigation. He will be prescribed erythromycin ointment. Advised to follow-up with ophthalmology in the next 48 hours. Will return to the ER if worsening Departure - Departure Disposition: 01 Home, Self Care Clinical Impression: Acute left eye pain Condition: Stable Record reviewed to determine appropriate education?: Yes Follow-Up: Elmer Durbin MD [Provider Admit Priv/Credential] - Comments: Martell I did not see any evidence of wood or nail in your eye today. The fluorescein stain that I did did not show any evidence of an ulceration or abrasion. The pressures in your eye were normal. The eye movements are normal. You have clear anterior chambers. What I could view of the retina also appeared normal. You do have some generalized conjunctival injection or irritation which is most likely just from the events of today. I would like you to apply the erythromycin ointment to your left eye twice daily for the next several days. I would like you to try and follow-up with an deep submergence vehicle operator in the next 48 hours. I am giving you the name of Dr. Elmer Durbin who may be able to see you in follow-up. I recommend a cool compress over your left eye if it is bothering you tonight. Otherwise take Tylenol or ibuprofen. Return immediately to the ER if you find that your symptoms are worsening
[2022-09-19 18:28] VITALS: BP 120/68
== END 2022-09-19 18:23 | disposition home or self-care (01) ==
LOC: ED 16:05
DX: H57.12 Ocular pain, left eye (principal)
CPT/HCPCS: 99282; 99283; J3490

== ENCOUNTER 2023-09-10 07:03 | Day surgery (SDC) | payer MEDICAID ==
[2023-09-10] MEDS: LACTATED RINGERS 1,000 ML IV ONE (07:14)
[2023-09-10] MEDS ORDERED: lidocaine 1% 20 ML MDV ONE (07:21)
--- NOTE | 2023-09-10 07:40 | ANESTHESIA ---
Pre-Anesthesia VS, & Labs - Diagnosis elective sterilization - Procedure vasectomy Vital Signs: Temp Pulse Resp BP Pulse Ox O2 Flow Rate 36.4 C L 79 16 131/79 H 98 09/10/23 07:21 09/10/23 07:21 09/10/23 07:21 09/10/23 07:21 09/10/23 07:21 Height: 6 ft Weight (kg): 105.4 kg Body Mass Index: 31.5 BMI Classification: Obese - NPO >8 hours Home Medications and Allergies Home Medications: Ambulatory Orders Buspirone HCl 10 mg PO BID 08/31/23 diphenhydrAMINE [Benadryl] 25 mg PO Q4-6H 08/31/23 Albuterol Sulf [Ventolin Hfa Inhaler] 1 - 2 puffs INH Q4HR PRN 08/18/22 Buspirone HCl 10 mg PO BID 08/31/23 diphenhydrAMINE [Benadryl] 25 mg PO Q4-6H 08/31/23 Allergies/Adverse Reactions: Allergies Allergy/AdvReac Type Severity Reaction Status Date / Time latex Allergy Rash Verified 09/19/22 16:13 Anes History & Medical History - Anesthetic History Anesthesia Complications: reports: No previous complications - Medical History Cardiovascular: reports: None Pulmonary: reports: Asthma Gastrointestinal: reports: GERD Urinary: reports: None Musculoskeletal: reports: None Endocrine/Autoimmune: reports: None Skin: reports: None Smoking Status: Never smoker - Surgical History General: reports: Cholecystectomy Eyes Ears Nose Throat (EENT): reports: Myringotomy (tubes), Tonsil/Adenoidectomy, Other Exam General: Alert, Oriented x3 Dental: WNL Mouth Opening: Greater than 4 Fingerbreadths Neck Mobility: Normal Mallampati classification: II Thyromental Distance: greater than 6 cm Respiratory: Lungs clear Cardiovascular: Regular rate Plan Anesthesia Type: MAC, Total IV Consent for Procedure(s) Verified and Reviewed: Yes Code Status: Attempt Resuscitation ASA classification: 2-Mild systemic disease Is this case an emergency?: No
[2023-09-10] MEDS: LACTATED RINGERS 300 ML IV ONE (08:24)
[2023-09-10] MEDS ORDERED: PROPOFOL 500 MG/50 ML 500 MG/50 ML VIAL ONE (08:26)
[2023-09-10] MEDS ORDERED: LIDOCAINE-PF 2% 10 ML AMP SUBQ ONE (08:26)
[2023-09-10] MEDS ORDERED: fentaNYL 100 MCG/2 ML VIAL ONE (08:26)
[2023-09-10] MEDS ORDERED: MIDAZOLAM 2 MG/2 ML VIAL ONE (08:26)
[2023-09-10] MEDS: LIDOCAINE 1% 50 ML MDV SUBQ ONE (08:47)
[2023-09-10] MEDS ORDERED: PROPOFOL 200 MG/20 ML VIAL IVP ONE (08:57)
[2023-09-10] MEDS: LACTATED RINGERS 600 ML IV ONE (09:04)
[2023-09-10] MEDS ORDERED: HYDROcod/ACETAM 5/325 MG TABLET PO PRN (09:12)
[2023-09-10] MEDS ORDERED: ONDANSETRON 4 MG/2 ML VIAL IVP PRN (09:12)
[2023-09-10 09:17] VITALS: O2SAT 96
--- NOTE | 2023-09-10 09:18 | Discharge Plan ---
Discharge Plan Problem Reviewed?: Yes Disposition: Home, Self Care Condition: Good Diet: Regular Activity Restrictions: Additional Comments (as instructed) Shower Restrictions: No Driving Restrictions: No Instruction Topics: Vasectomy No Scalpel No Smoking: If you smoke, Please STOP! Call for help. Follow-up with: Magy King PA-C [Primary Care Provider] -
--- NOTE | 2023-09-10 09:24 | OPERATIVE REPORT ---
Operative Report - General Procedure Date: 09/10/23 Planned Procedure: Bilateral Vasectomy Pre-Op Diagnosis: Elective sterilization Procedure Performed: Bilateral no scalpel vasectomy Post Op Diagnosis: Elective sterilization - Procedure Note Primary Surgeon: Terrell Anesthesia Provider: DALE Hinds Anesthesia Technique: MAC Pathology: none Estimated Blood Loss (mL): 0 Indications: elective sterilization Findings: normal vasectomy Complications: none - Other Other Information/Narrative: After informed consent was obtained the patient was brought to the OR and laid the supine position. The patient was anesthetized per anesthesia protocols and prepped draped in usual sterile fashion. A formal timeout was performed reconfirming the patient, procedure and laterality. 1% lidocaine was used as local which was instilled to his right hemiscrotum. Using a sharp dissecting mosquito we punctured the skin and widened this puncture to allow access to the vas deferens which was grasped using a ring clamp. The vas sheath was incised away and the vas was isolated. It was clamped at both ends and an intervening 1 cm segment was cauterized away. The ends were suture-ligated using 3-0 chromic suture. The distal end was buried using a fascial interposition stitch. Cautery was used for any oozing. There was no significant bleeding and hemostasis was excellent. The skin was then closed using a horizontal mattress 3-0 chromic suture. An identical procedure was performed on the left side. This concluded the procedure the patient tolerated procedure well. All counts were correct. He will go home today and have a semen analysis in 3 months.
[2023-09-10 09:39] VITALS: BP 121/76
[2023-09-10] MEDS: HYDROcod/ACETAM 5/325 MG TABLET ONE (09:49)
--- NOTE | 2023-09-10 13:18 | ANESTHESIA POST OP EVALUATION ---
Anesthesia Post Eval - Post Anesthesia Eval Vitals: Last Vital Signs Temp 36.4 C L 09/10/23 09:30 Pulse 59 L 09/10/23 09:30 Resp 12 09/10/23 09:30 BP 121/76 09/10/23 09:30 Pulse Ox 96 09/10/23 09:30 O2 Flow Rate CV Function Including HR & BP: Stable Pain Control: Satisfactory Nausea & Vomiting: Negative Mental Status: Baseline Respiratory Status: Airway Patent Hydration Status: Satisfactory Anesthesia Complications: None
== END 2023-09-10 07:04 | disposition home or self-care (01) ==
LOC: SDS 07:03
PROVIDERS: ATTEND Urology
DX: Z30.2 Encounter for sterilization (principal); E66.9 Obesity, unspecified; Z68.31 Body mass index [BMI] 31.0-31.9, adult; J45.909 Unspecified asthma, uncomplicated
CPT/HCPCS: 55250; A9270; J7120

== ENCOUNTER 2023-11-26 11:02 | Outpatient (CLI) | payer MEDICAID | END 2023-11-26 23:59 | disposition home or self-care (01) | LOC: EMS 11:02 | DX: M54.50 Low back pain, unspecified (principal); G89.29 Other chronic pain; R11.10 Vomiting, unspecified | CPT/HCPCS: A0425; A0427; A0999 ==

== ENCOUNTER 2023-11-26 11:26 | Emergency (ER) | payer MEDICAID ==
--- NOTE | 2023-11-26 11:50 | ED Physician Documentation ---
PD HPI BACK PAIN - Stated complaint Stated Complaint: BACK PX - Chief complaint Chief Complaint: Back Pain - History obtained from History obtained from: Patient - History of Present Illness Location: Lower, Right Quality: Pain, Spasm Associated symptoms: Numbness. No: Fever, Weakness, Incontinent of urine, Unable to urinate, Hematuria, Incontinent of stool Improves with: Nothing Worsened by: No: Movement, Lifting, Twisting, Palpation Contributing factors: Lifting. No: Trauma, Anticoagulated, Cancer, IVDA Similar symptoms before: Diagnosis - Additional information Additional information: 34-year-old male with a 10-year history of intermittent and chronic lower back pain presents with acute exacerbation of lower back pain. The patient states that he vomited 3 times this morning, and during the retching he felt a pulling tear in his right lower back and subsequently developed spasm in the lower right lower back radiating into his right buttocks and into the right upper leg to the knee. He has some numbness and tingling of the upper leg into the knee but no right leg weakness, no saddle anesthesia. He states he is not sure why he was vomiting, his daughter did vomit yesterday, the patient has noted some soft stools, no fever, no abdominal pain, no dysuria urgency or frequency, no URI type symptoms. He states he has never had any traumatic injuries to his back but works as a contractor and [place], and has been lifting things his whole life and suspects it was accumulation of activity that has led to his back pain. He sees a chiropractor and feels like it is actually making things worse, he has not taken any medication for this issue and states that most healthcare personnel have minimized his issue in the past and he does not feel like he has gotten the help that he needs. Review of Systems Constitutional: reports: Reviewed and negative Eyes: reports: Reviewed and negative Ears: reports: Reviewed and negative Nose: reports: Reviewed and negative Throat: reports: Reviewed and negative Cardiac: reports: Reviewed and negative Respiratory: reports: Reviewed and negative GI: reports: Vomiting. denies: Abdominal Pain, Abdominal Swelling, Nausea, Constipation, Diarrhea, Hematemesis, Bloody / black stool : reports: Reviewed and negative Skin: reports: Reviewed and negative Musculoskeletal: reports: Back pain. denies: Neck pain, Extremity pain, Joint pain, Extremity swelling, Joint swelling, Pain with weight bearing Neurologic: reports: Reviewed and negative Psychiatric: reports: Reviewed and negative Endocrine: reports: Reviewed and negative PD PAST MEDICAL HISTORY - Past Medical History Past Medical History: Yes Cardiovascular: None Respiratory: Asthma Endocrine/Autoimmune: None GI: GERD : None HEENT: None Psych: Anxiety, Panic attacks Musculoskeletal: None Derm: None - Past Surgical History Past Surgical History: No General: Cholecystectomy HEENT: Myringotomy (tubes), Tonsil/Adenoidectomy, Other - Present Medications Home Medications: Ambulatory Orders Medication Instructions Recorded Confirmed Albuterol Sulf [Ventolin Hfa 1 - 2 puffs INH Q4HR PRN 08/18/22 09/10/23 Inhaler] Buspirone HCl 10 mg PO BID 08/31/23 09/10/23 diphenhydrAMINE [Benadryl] 25 mg PO Q4-6H 08/31/23 09/10/23 Cyclobenzaprine [Flexeril] 10 mg PO TID PRN #20 tablet 11/26/23 HYDROcod/ACETAM 5/325 [[place] 5/325] 1 - 2 tablet PO Q6H PRN #10 tablet 11/26/23 Naproxen [EC-Naproxen] 500 mg PO BID PRN #20 ea 11/26/23 - Allergies Allergies/Adverse Reactions: Allergies Allergy/AdvReac Type Severity Reaction Status Date / Time latex Allergy Rash Verified 11/26/23 11:33 - Social History Does the pt smoke?: No Smoking Status: Never smoker Does the pt drink ETOH?: No Does the pt have substance abuse?: No - Immunizations Immunizations are current?: Yes - POLST Patient has POLST: No PD ED PE NORMAL - Vitals Vital signs reviewed: Yes - General General: Alert and oriented X 3, No acute distress, Well developed/nourished - HEENT HEENT: Atraumatic, Moist mucous membranes - Neck Neck: Supple, no meningeal sign, No bony TTP - Cardiac Cardiac: RRR, No murmur - Respiratory Respiratory: No respiratory distress, Clear bilaterally - Abdomen Abdomen: Normal bowel sounds, Soft, Non tender, Non distended - Back Back: No CVA TTP, No spinal TTP, Other (Right lumbosacral paravertebral muscle tenderness to palpation into the right sciatic nerve.) - Derm Derm: Normal color, Warm and dry, No rash - Extremities Extremities: No deformity, No tenderness to palpate, No edema, No calf tenderness / cord, Other (Right leg positive straight leg raise testing, Favor normal range of motion. Normal sensation in both lower extremities) - Neuro Neuro: Alert and oriented X 3 Eye Opening: Spontaneous Motor: Obeys Commands Verbal: Oriented GCS Score: 15 - Psych Psych: Normal mood, Normal affect Results - Vitals Vitals: Vital Signs - 24 hr 11/26/23 11/26/23 11/26/23 11:33 11:55 12:50 Temperature 36.7 C Heart Rate 52 L 41 L 50 L Respiratory 22 12 14 Rate Blood Pressure 123/77 139/84 H 125/71 O2 Saturation 99 98 99 11/26/23 14:26 Temperature 36.7 C Heart Rate 52 L Respiratory 14 Rate Blood Pressure 137/75 H O2 Saturation 98 Oxygen O2 Source Room air PD Medical Decision Making - ED course Complexity details: considered differential, d/w patient, d/w family ED course: 33-year-old male presented with right lower back pain after episode of vomiting earlier today as described in HPI. He has no other abdominal symptoms to suggest acute surgical abdomen peritoneal signs and the vomiting has resolved. It sounds as though his daughter had similar symptoms expect this is a viral gastro but during the course of his vomiting he did strain his lower back. He has tenderness of the lumbosacral paravertebral muscles in the right sided rating into the right leg. No midline tenderness and he has no risk factors for osteomyelitis, epidural abscess, no sign of cauda equina syndrome. The patient was given initially diazepam and Toradol with only minimal improvement in symptoms therefore he received a 0.5 mg dose of Dilaudid with some improvement of his subsequent 0.5 mg dose with increased improvement was able to ambulate here. I discussed with patient that treatment is largely supportive including anti-inflammatories, Tylenol, moist heat or cold compress, avoid lifting twisting, and I will give him a short course of Flexeril and hydrocodone to use only as needed he was cautioned on potential side effects of these medications. Recommended he follow-up with his PCP and they have already scheduled follow-up appointment to discuss physical therapy versus possible MRI. I discussed return precautions in detail if new or worsening symptoms. Departure - Departure Disposition: 01 Home, Self Care Clinical Impression: Lumbar radiculopathy Low back strain Qualifiers: Encounter type: initial encounter Qualified Code(s): S39.012A - Strain of muscle, fascia and tendon of lower back, initial encounter Condition: Good Instructions: ED Back Care Tips, ED Low Back Pain Injury, ED Sciatica Prescriptions: Naproxen [EC-Naproxen] 500 mg PO BID PRN #20 ea PRN Reason: Pain 1-4 Cyclobenzaprine [Flexeril] 10 mg PO TID PRN #20 tablet PRN Reason: Spasms HYDROcod/ACETAM 5/325 [[place] 5/325] 1 - 2 tablet PO Q6H PRN #10 tablet PRN Reason: Pain Comments: You likely have a tear in the right lower back muscles. This is triggering spasming that is radiating into your hip and leg. You may have a bit of a bulging disc which is contributing as well. All of these things are treated supportively with rest, ice or moist heat, anti-inflammatories, and other pain medication if needed. It can take several days to weeks to improve. I think you would likely benefit from outpatient MRI eventually but this does not need to be done emergently today. Recommend holding off on your chiropractor therapy for now until your acute symptoms resolved. Physical therapy can be helpful for this issue as well. I am prescribing a short course of narcotic pain medication for you. These are potentially dangerous and addictive medications that should be used carefully. These medications may constipate you. Take an crlx-fjf-mxlaipr stool softener (docusate) twice daily with plenty of water while taking these medications. If you go 24 hours without a bowel movement, take [id number] miralax, per package instructions. Do not drink or drive while taking these medications. If you received narcotic or sedating medications while in the emergency department, do not drive for 24 hours. Store this medication in a safe, secure place and out of reach of children. It is a violation of federal law to give or sell this medication to another person or to use in a manner other than prescribed. The ED will not refill narcotic prescriptions, including prescriptions lost or stolen. To dispose of unwanted medications: 1. [facility]'s Office provides a drop box for medication in pill form only (no liquids) 8:00 am to 4:30 p.m. Sunday-Sunday in the lobby of the [facility], [address] Empty pills into ziplock bag before disposal. Call [phone] for information. 2.[employer] is a free service available to all [facility] residents. Go to [email or web address] Note that many narcotic pain relievers also contain Tylenol/acetaminophen. Please ensure that your total dose of acetaminophen from all sources does not exceed 3 g (3000 mg) per day. Discharge Date/Time: 11/26/23 14:26
[2023-11-26] MEDS: diazePAM INJ 5 MG/ML SYRINGE IVP STA (11:51)
[2023-11-26] MEDS: KETOROLAC 15 MG/ML VIAL IVP STA (11:51)
[2023-11-26] MEDS: HYDROmorphone 1 MG/ML CARPUJECT IVP STA (12:44)
[2023-11-26] MEDS: HYDROmorphone 0.5 MG/0.5 ML SYRINGE IVP STA (13:39)
[2023-11-26 14:39] VITALS: BP 137/75; O2SAT 98
== END 2023-11-26 14:26 | disposition home or self-care (01) ==
LOC: EDUNIT# → ED 11:26
DX: S39.012A Strain of muscle, fascia and tendon of lower back, initial encounter (principal); X50.0XXA Overexertion from strenuous movement or load, initial encounter; Y93.89 Activity, other specified; M54.16 Radiculopathy, lumbar region; R11.10 Vomiting, unspecified
CPT/HCPCS: 96374; 96375; 96376; 99283

== ENCOUNTER 2023-11-26 21:28 | Emergency (ER) | payer MEDICAID ==
--- NOTE | 2023-11-26 21:40 | ED Physician Documentation ---
PD HPI NVD - Stated complaint Stated Complaint: VOMITING/N - Chief complaint Chief Complaint: Abd Pain - History obtained from History obtained from: Patient - History of Present Illness Timing - onset: How many days ago (1) Timing - duration: Days (1) Timing - details: Abrupt onset, Still present Associated symptoms: Abdominal pain (cramping intermittent mid abd.). No: Fever, Dysuria Contributing factors: Sick contact (daughter with vomiting yesterday few times.). No: Bad food, Recent antibiotics, Diabetes Recently seen: Not recently seen PD PAST MEDICAL HISTORY - Past Medical History Cardiovascular: None Respiratory: Asthma Endocrine/Autoimmune: None GI: GERD : None HEENT: None Psych: Anxiety, Panic attacks Musculoskeletal: None Derm: None - Past Surgical History Past Surgical History: No General: Cholecystectomy HEENT: Myringotomy (tubes), Tonsil/Adenoidectomy, Other - Present Medications Home Medications: Ambulatory Orders Medication Instructions Recorded Confirmed Albuterol Sulf [Ventolin Hfa 1 - 2 puffs INH Q4HR PRN 08/18/22 09/10/23 Inhaler] Buspirone HCl 10 mg PO BID 08/31/23 09/10/23 diphenhydrAMINE [Benadryl] 25 mg PO Q4-6H 08/31/23 09/10/23 Cyclobenzaprine [Flexeril] 10 mg PO TID PRN #20 tablet 11/26/23 HYDROcod/ACETAM 5/325 [[place] 5/325] 1 - 2 tablet PO Q6H PRN #10 tablet 11/26/23 Naproxen [EC-Naproxen] 500 mg PO BID PRN #20 ea 11/26/23 Ondansetron Odt [Zofran] 4 mg TL Q6H PRN #10 tablet 11/27/23 Promethazine Supp [Phenergan Supp] 25 mg [place] Q6H PRN #4 supp 11/27/23 Promethazine [Phenergan] 25 mg PO Q6H PRN #10 tab 11/27/23 - Allergies Allergies/Adverse Reactions: Allergies Allergy/AdvReac Type Severity Reaction Status Date / Time latex Allergy Rash Verified 11/26/23 11:33 - Social History Does the pt smoke?: No Smoking Status: Never smoker Does the pt drink ETOH?: No Does the pt have substance abuse?: No - Immunizations Immunizations are current?: Yes - POLST Patient has POLST: No PD ED PE NORMAL - Vitals Vital signs reviewed: Yes - General General: Alert and oriented X 3, Well developed/nourished, Other (appears uncomfortable due to nausea and holding emesis bag. Pale. ) - Respiratory Respiratory: No respiratory distress, Clear bilaterally - Abdomen Abdomen: Soft, Non tender, Non distended. No: Normal bowel sounds (decreased) Results - Vitals Vitals: Oxygen O2 Source Room air - Labs Labs: Laboratory Tests 11/26/23 11/26/23 22:05 22:05 WBC 12.0 H RBC 4.95 Hgb 14.2 Hct 42.3 MCV 85.5 MCH 28.7 MCHC 33.6 RDW 12.3 Plt Count 268 MPV 9.6 Neut # (Auto) 11.0 H Lymph # (Auto) 0.7 L [place] # (Auto) 0.2 Eos # (Auto) 0.0 Baso # (Auto) 0.0 Absolute Nucleated RBC 0.00 Nucleated RBC % 0.0 Sodium 137 Potassium 3.7 Chloride 107 Carbon Dioxide 22 Anion Gap 8.0 BUN 27 H Creatinine 1.2 Estimated GFR (MDRD) 69 L Glucose 129 H Calcium 10.0 Magnesium 1.5 L Total Bilirubin 1.9 H AST 62 H ALT 65 H Alkaline Phosphatase 39 L Total Protein 6.7 Albumin 4.5 Globulin 2.2 Albumin/Globulin Ratio 2.0 Lipase < 10 L PD Medical Decision Making - ED course Complexity details: reviewed results (some elevated liver enzymes, bili 2.1 with history trend of some elevation of these. Conisder liver process, but could also consider stress induced, such as Baxter. ), re-evaluated patient (improved symptoms after fluids and meds for nausea and cramps. Taking PO okay. ), considered differential (seems likley viral GE with daughter ill day prior and N/V without focal tenderness. Will give IV fluids and meds. Consider but do not feel needed any imaging at this time. ), d/w patient Departure - Departure Disposition: 01 Home, Self Care Clinical Impression: Nausea vomiting and diarrhea, Volume depletion, gastrointestinal loss, Elevated liver enzymes Condition: Stable Record reviewed to determine appropriate education?: Yes Instructions: ED Diet Vomiting Diarrhea Prescriptions: Promethazine [Phenergan] 25 mg PO Q6H PRN #10 tab PRN Reason: Nausea / Vomiting Promethazine Supp [Phenergan Supp] 25 mg [place] Q6H PRN #4 supp PRN Reason: Nausea / Vomiting Ondansetron Odt [Zofran] 4 mg TL Q6H PRN #10 tablet PRN Reason: Nausea / Vomiting Comments: Small frequent fluids at home and initially overnight. [place] food or very minimal such as just crackers or such overnight and into tomorrow. See how your stomach is feeling at that point in progress diet if tolerated. I would go with small volumes of fluid at a time as well as your stomach will be irritated. Ondansetron if needed for nausea. You can add promethazine tablet or suppository if needed for persistent nausea and vomiting not relieved by the Zofran. I wrote prescriptions for you if needed. Hopefully this is a viral type illness that will just last for couple of days and then improved. Forms: PCP List Discharge Date/Time: 11/27/23 00:32
[2023-11-26 22:09] LABS: BASOPHILS % (AUTO) 0.3 %; EOSINOPHILS % (AUTO) 0.1 %; HCT - HEMATOCRIT 42.3 % (42.0-52.0); HGB - HEMOGLOBIN 14.2 g/dL (14.0-18.0); LYMPHOCYTES # (AUTO) 0.7 10^3/uL (1.5-3.5); LYMPHOCYTES % (AUTO) 5.8 %; MEAN CORPUSCULAR HEMOGLOBIN 28.7 pg (27.0-31.0); MEAN CORPUSCULAR HGB CONC 33.6 g/dL (32.0-36.0); MEAN CORPUSCULAR VOLUME 85.5 fL (80.0-94.0); MEAN PLATELET VOLUME 9.6 fL (7.4-11.4); MONOCYTES # (AUTO) 0.2 10^3/uL (0.0-1.0); NEUTROPHILS % (AUTO) 91.5 %; PLT - PLATELET COUNT 268 10^3/uL (130-450); RED BLOOD COUNT 4.95 10^6/uL (4.70-6.10); RED CELL DISTRIBUTION WIDTH 12.3 % (12.0-15.0)
[2023-11-26] MEDS: FAMOTIDINE 20 MG/2 ML VIAL IVP STA (22:15)
[2023-11-26] MEDS: SODIUM CHLORIDE 0.9% 1,000 ML IV STA ×2 (22:15→23:09)
[2023-11-26] MEDS: DROPERIDOL 5 MG/2 ML VIAL IVP STA (22:15)
[2023-11-26] MEDS: KETOROLAC 15 MG/ML VIAL IVP STA (22:16)
[2023-11-26 22:30] LABS: ALBUMIN 4.5 g/dL (3.2-5.5); ALKALINE PHOSPHATASE 39 IU/L (42-121); ALT ALANINE AMINOTRANSFERASE 65 IU/L (10-60); AST ASPARTATE AMINOTRANSFERASE 62 IU/L (10-42); BILIRUBIN,TOTAL 1.9 mg/dL (0.2-1.0); BUN - BLOOD UREA NITROGEN 27 mg/dL (6-20); CARBON DIOXIDE - CO2 22 mmol/L (21-32); CHLORIDE 107 mmol/L (101-111); CREATININE 1.2 mg/dL (0.6-1.3); GFR - MDRD 69 (>89); GLUCOSE 129 mg/dL (74-104); LIPASE < 10 U/L (11-82); MAGNESIUM 1.5 mg/dL (1.7-2.3); POTASSIUM 3.7 mmol/L (3.5-4.5); SODIUM 137 mmol/L (135-145); TOTAL PROTEIN 6.7 g/dL (6.4-8.9)
[2023-11-27 00:11] VITALS: BP 126/86; O2SAT 97
[2023-11-27] MEDS: PROMETHAZINE 25 MG TABLET PO STA (00:30)
== END 2023-11-27 00:32 | disposition home or self-care (01) ==
LOC: ED 21:28
DX: R11.2 Nausea with vomiting, unspecified (principal); R19.7 Diarrhea, unspecified; E86.9 Volume depletion, unspecified; R74.01 Elevation of levels of liver transaminase levels; S39.012A Strain of muscle, fascia and tendon of lower back, initial encounter; X50.0XXA Overexertion from strenuous movement or load, initial encounter; Y93.89 Activity, other specified; M54.16 Radiculopathy, lumbar region
CPT/HCPCS: 36415; 80053; 83690; 83735; 85025; 96374; 96375; 96376; 99283; 99284; J1170; Q0169

== ENCOUNTER 2023-12-02 09:44 | Emergency (ER) | payer MEDICAID ==
[2023-12-02 10:02] VITALS: BP 141/93; O2SAT 97
--- NOTE | 2023-12-02 10:02 | ED Physician Documentation ---
History of Present Illness - Stated complaint Stated Complaint: BACK PX, FOOT/LEG NUMBNESS AND PX - Chief complaint Chief Complaint: Back Pain - History obtained from History obtained from: Patient - Additonal information Additional information: He started develop back pain that is severe about a week ago. He has been seen here twice, now the lateral right foot and calf are going numb. No saddle a nesthesia or fevers. No history of drug use. He was getting some relief from hydrocodone but is out. No relief from muscle relaxers. Has an appointment on Sunday for follow-up. PD PAST MEDICAL HISTORY - Past Medical History Cardiovascular: None Respiratory: Asthma Endocrine/Autoimmune: None GI: GERD : None HEENT: None Psych: Anxiety, Panic attacks Musculoskeletal: None Derm: None - Past Surgical History Past Surgical History: No General: Cholecystectomy HEENT: Myringotomy (tubes), Tonsil/Adenoidectomy, Other - Present Medications Home Medications: Ambulatory Orders Medication Instructions Recorded Confirmed Albuterol Sulf [Ventolin Hfa 1 - 2 puffs INH Q4HR PRN 08/18/22 09/10/23 Inhaler] Buspirone HCl 10 mg PO BID 08/31/23 09/10/23 diphenhydrAMINE [Benadryl] 25 mg PO Q4-6H 08/31/23 09/10/23 Cyclobenzaprine [Flexeril] 10 mg PO TID PRN #20 tablet 11/26/23 HYDROcod/ACETAM 5/325 [[place] 5/325] 1 - 2 tablet PO Q6H PRN #10 tablet 11/26/23 Naproxen [EC-Naproxen] 500 mg PO BID PRN #20 ea 11/26/23 Ondansetron Odt [Zofran] 4 mg TL Q6H PRN #10 tablet 11/27/23 Promethazine Supp [Phenergan Supp] 25 mg GA Q6H PRN #4 supp 11/27/23 Promethazine [Phenergan] 25 mg PO Q6H PRN #10 tab 11/27/23 Oxycodone HCl/Acetaminophen 1 - 2 each PO Q6H PRN #30 tablet 12/02/23 [Percocet 5-325 mg Tablet] predniSONE [Deltasone] 20 mg PO #21 tab 12/02/23 - Allergies Allergies/Adverse Reactions: Allergies Allergy/AdvReac Type Severity Reaction Status Date / Time latex Allergy Rash Verified 12/02/23 09:48 - Social History Does the pt smoke?: No Smoking Status: Never smoker Does the pt drink ETOH?: No Does the pt have substance abuse?: No - Immunizations Immunizations are current?: Yes - POLST Patient has POLST: No PD ED PE NORMAL - Vitals Vital signs reviewed: Yes - Back Back: No spinal TTP - Extremities Extremities: Other (He is insensate over the right upper lateral calf. Unable to check reflexes as he cannot sit down due to pain.) - Neuro Neuro: Alert and oriented X 3 Eye Opening: Spontaneous Motor: Obeys Commands Verbal: Oriented GCS Score: 15 Results - Vitals Vitals: Vital Signs - 24 hr 12/02/23 09:49 Temperature 36.8 C Heart Rate 78 Respiratory 17 Rate Blood Pressure 141/93 H O2 Saturation 97 Oxygen O2 Source Room air PD Medical Decision Making - ED course ED course: Nothing in the history or physical to suggest cauda equina or spinal infection. That said he probably does have a disc herniation right L4-L5 clinically. No MRI available today but it is not emergent's without cauda equina symptoms. Treated here with IM Dilaudid, Toradol, and dexamethasone. Departure - Departure Disposition: 01 Home, Self Care Clinical Impression: Lumbar radiculopathy Condition: Good Record reviewed to determine appropriate education?: Yes Instructions: ED Sciatica Prescriptions: predniSONE [Deltasone] 20 mg PO [id number] #21 tab Oxycodone HCl/Acetaminophen [Percocet 5-325 mg Tablet] 1 - 2 each PO Q6H PRN #30 tablet PRN Reason: pain Comments: I sent your prescriptions electronically to the [facility]. Follow-up on Sunday as scheduled for reevaluation and MRI referral. Sooner for new or worsening symptoms. I agree that based on your symptomatology would probably do have a right sided disc herniation at L4-L5 which may eventually need surgery. You do not need to take any more steroids today as we gave you a shot of that here but you can take more of the pain medications. You can continue the Aleve in addition to the prescribed medications. I am prescribing a short course of narcotic pain medication for you. These are potentially dangerous and addictive medications that should be used carefully. These medications may constipate you. Take an zrfn-cdt-mzmzpet stool softener (docusate) twice daily with plenty of water while taking these medications. If you go 24 hours without a bowel movement, take dbsw-soz-hbmzhqj miralax, per package instructions. Do not drink or drive while taking these medications. If you received narcotic or sedating medications while in the emergency department, do not drive for 24 hours. Store this medication in a safe, secure place and out of reach of children. It is a violation of federal law to give or sell this medication to another person or to use in a manner other than prescribed. The ED will not refill narcotic prescriptions, including prescriptions lost or stolen. To dispose of unwanted medications: 1. [facility] provides a drop box for medication in pill form only (no liquids) 8:00 am to 4:30 p.m. Sunday-Sunday in the lobby of the [facility], [address] [place] [address]. Empty pills into ziplock bag before disposal. Call [phone] for information. 2.[employer] is a free service available to all [facility] residents. Go to [email or web address] Note that many narcotic pain relievers also contain Tylenol/acetaminophen. Please ensure that your total dose of acetaminophen from all sources does not exceed 3 g (3000 mg) per day.
[2023-12-02] MEDS: KETOROLAC 30 MG/ML VIAL IM STA (10:16)
[2023-12-02] MEDS: DEXAMETHASONE 10 MG/ML VIAL IM STA (10:16)
[2023-12-02] MEDS: HYDROmorphone 2 MG/ML VIAL IM STA (10:16)
== END 2023-12-02 10:25 | disposition home or self-care (01) ==
LOC: ED 09:44
DX: M54.16 Radiculopathy, lumbar region (principal); Z79.899 Other long term (current) drug therapy
CPT/HCPCS: 96372; 99283; J1170